=== PATIENT | female | born 1970 | race Caucasian/White ===

== ENCOUNTER 2023-09-19 04:45 | Day surgery (SDC) | payer BC ==
[2023-09-17 15:22] VITALS: BMI 27.1
[2023-09-19] MEDS ORDERED: BUPIVACAINE HCL/PF 0.75% 10 ML VIAL ONE ×2 (07:33→12:26)
[2023-09-19] MEDS ORDERED: LIDOCAINE HCL/PF 1% SDV 5ML VIAL ONE (07:33)
[2023-09-19] MEDS ORDERED: LIDOCAINE HCL 1%, 10 MG/ML (20ML VIAL) NR ONE (12:42)
[2023-09-19] MEDS ORDERED: BUPIVACAINE HCL/PF 0.25% (2.5MG/ML) 10 ML VIAL IJ ONE (12:42)
[2023-09-19 13:14] VITALS: BP 113/71; PULSE 75; RESP 16; TEMP 97.8
[2023-09-19] MEDS ORDERED: ACETAMINOPHEN 500 MG TABLET (FP) PO PRN (14:11)
== END 2023-09-19 13:47 | disposition home or self-care (01) ==
LOC: JASU-SURG 04:45
PROVIDERS: ATTEND Pain Medicine Pain Medicine
PROC: 3E0T3BZ Introduction of Anesthetic Agent into Peripheral Nerves and Plexi, Percutaneous Approach (ICD-10-PCS; principal; 2023-09-19 13:15)
DX: M47.816 Spondylosis without myelopathy or radiculopathy, lumbar region (principal)
CPT/HCPCS: 76000-TC-FY

== ENCOUNTER 2023-10-14 03:51 | Day surgery (SDC) | payer BC ==
[2023-10-13 08:34] VITALS: BMI 27.1
[2023-10-14] MEDS ORDERED: BUPIVACAINE HCL/PF 0.75% 10 ML VIAL ONE (07:08)
[2023-10-14] MEDS ORDERED: LIDOCAINE HCL/PF 1% SDV 5ML VIAL ONE (07:09)
[2023-10-14 08:14] VITALS: RESP 18
[2023-10-14] MEDS ORDERED: LIDOCAINE 1% P/F 10 MG/ML VIAL INF ONE (09:34)
[2023-10-14] MEDS ORDERED: BUPIVACAINE HCL/PF 0.75% 10 ML VIAL NR ONE (09:34)
[2023-10-14 10:04] VITALS: TEMP 97.8
[2023-10-14 10:53] VITALS: BP 119/76; PULSE 76
[2023-10-14] MEDS ORDERED: ACETAMINOPHEN 500 MG TABLET (FP) PO PRN (13:15)
== END 2023-10-14 10:35 | disposition home or self-care (01) ==
LOC: JASU-SURG 03:51
PROVIDERS: ATTEND Pain Medicine Pain Medicine
PROC: 3E0T33Z Introduction of Anti-inflammatory into Peripheral Nerves and Plexi, Percutaneous Approach (ICD-10-PCS; 2023-10-14)
PROC: BR16ZZZ Fluoroscopy of Lumbar Facet Joint(s) (ICD-10-PCS; 2023-10-14)
PROC: 3E0T3BZ Introduction of Anesthetic Agent into Peripheral Nerves and Plexi, Percutaneous Approach (ICD-10-PCS; principal; 2023-10-14 09:45)
DX: M47.816 Spondylosis without myelopathy or radiculopathy, lumbar region (principal)
CPT/HCPCS: 76000-TC-FY

== ENCOUNTER 2023-11-14 04:56 | Day surgery (SDC) | payer BC ==
[2023-11-07 11:15] VITALS: BMI 26.6
[2023-11-14] MEDS ORDERED: DEXAMETHASONE SOD PHOSPHATE 10 MG/1 ML VIAL ONE (07:18)
[2023-11-14] MEDS ORDERED: BUPIVACAINE HCL/PF 0.75% 10 ML VIAL ONE (07:18)
[2023-11-14] MEDS ORDERED: LIDOCAINE HCL/PF 1% SDV 5ML VIAL ONE (07:18)
[2023-11-14] MEDS ORDERED: LIDOCAINE HCL/PF 2% SDV 5ML VIAL ONE (07:18)
[2023-11-14 12:01] VITALS: BP 110/71; PULSE 104; RESP 18; TEMP 98.1
[2023-11-14] MEDS ORDERED: DEXAMETHASONE SOD PHOSPHATE 10 MG/1 ML VIAL IVPUSH ONE (12:37)
[2023-11-14] MEDS ORDERED: LIDOCAINE HCL/PF 2% SDV 5ML VIAL INF ONE (12:37)
[2023-11-14] MEDS ORDERED: BUPIVACAINE HCL/PF 0.75% 10 ML VIAL NR ONE (12:37)
[2023-11-14] MEDS ORDERED: LIDOCAINE 1% P/F 10 MG/ML VIAL INF ONE (12:37)
== END 2023-11-14 14:32 | disposition home or self-care (01) ==
LOC: JASU-SURG 04:56
PROVIDERS: ATTEND Pain Medicine Pain Medicine
PROC: 015B3ZZ Destruction of Lumbar Nerve, Percutaneous Approach (ICD-10-PCS; principal; 2023-11-14 12:45)
DX: M47.816 Spondylosis without myelopathy or radiculopathy, lumbar region (principal)
CPT/HCPCS: 76000-TC-FY; 81025; J1100

== ENCOUNTER 2023-12-23 04:36 | Day surgery (SDC) | payer BC ==
[2023-12-16 11:10] VITALS: BMI 26.6
[2023-12-23] MEDS ORDERED: LIDOCAINE HCL/PF 2% SDV 5ML VIAL ONE (07:17)
[2023-12-23] MEDS ORDERED: LIDOCAINE HCL/PF 1% SDV 5ML VIAL ONE (07:17)
[2023-12-23] MEDS ORDERED: BUPIVACAINE HCL/PF 0.75% 10 ML VIAL ONE (07:17)
[2023-12-23] MEDS ORDERED: ACETAMINOPHEN 500 MG TABLET (FP) PO PRN (10:29)
[2023-12-23] MEDS: BUPIVACAINE HCL/PF 0.75% 10 ML VIAL NR ONE (11:54)
[2023-12-23] MEDS: LIDOCAINE HCL 1% PRESERVATIVE FREE - 30ML VIAL IJ ONE (11:54)
[2023-12-23] MEDS: DEXAMETHASONE SOD PHOSPHATE 10 MG/1 ML VIAL IVPUSH ONE (11:54)
[2023-12-23] MEDS: LIDOCAINE HCL/PF 2% SDV 5ML VIAL INF ONE (11:54)
[2023-12-23 13:29] VITALS: BP 125/71; PULSE 77; RESP 18; TEMP 97.8
== END 2023-12-23 12:40 | disposition home or self-care (01) ==
LOC: JASU-SURG 04:36
PROVIDERS: ATTEND Pain Medicine Pain Medicine
PROC: 015B3ZZ Destruction of Lumbar Nerve, Percutaneous Approach (ICD-10-PCS; principal; 2023-12-23 11:00)
DX: M47.816 Spondylosis without myelopathy or radiculopathy, lumbar region (principal)
CPT/HCPCS: 76000-TC-FY; 81025; J1100